=== PATIENT | male | born 1935 | race Caucasian/White ===

== ENCOUNTER 2016-11-27 11:42 | Inpatient (IN) | payer MEDICARE, BC ==
--- NOTE | ~2016-11-27 | HEMODYNAMI ---
PATIENT:COLUMBA MURRY MEDICAL RECORD: [id number] : 39 LOCATION:[facility].210 ADMISSION DATE: 11/27/16 Generatedon:11/28/201611:17 Patient name: COLUMBA MURRY Patient #: [id number] SSN: : [id number] Date of study: 11/28/2016 Page: Of Hemodynamic Procedure Report Patient Data Patient Demographics Procedure consent was obtained First Name: COLUMBA Gender: Male Last Name: LOVELY : 1935 [facility] Initial: R Age: 81 year(s) Patient #: [id number] Race: Additional ID: [id number] Contact details Address: [address] State: [place] City: [place] Zip code: [address] Past Medical History Allergies Allergen Reaction Date Comments Reported Other allergy 08/26/2014 ASA, Sulfa, Metformin Admission Admission Data Admission Date: 11/27/2016 Admission Time: 16:56 Room #: [facility] Procedure Procedure Types Cath Procedure Diagnostic Procedure [facility] w/Coronaries PCI Procedure Coronary Stent Initial Miscellaneous Procedures Moderate Sedation up to 45 minutes Procedure Description Procedure Date Procedure Date: 11/28/2016 Procedure Start Time: 10:24 Procedure End Time: 11:15 Procedure Staff Name Function Milton Guillen MD Performing Physician Bala Pablo RN Nurse Breonna Berman RT Scrub Maurizio Harrell RT Monitor Procedure Data Cath Procedure Fluoroscopy Diagnostic fluoroscopy Total fluoroscopy Time: time: 18.4 min 18.4 min Diagnostic fluoroscopy Total fluoroscopy dose: dose: 2145 mGy 2145 mGy Contrast Material Contrast Material Type Amount (ml) Isovue 300 127 Entry Location Entry Primary Successful Side Size Upsize Upsize Entry Closure Long ccessful Closure Location (Fr) 1 (Fr) 2 (Fr) Remarks Device Remarks Radial Right 6 Fr Mechanical artery Short Compression Estimated blood loss: 10 ml Diagnostic catheters Device Type Used For End Catheter Placement Diagnostic Terumo 5Fr Procedure [place] 110cm catheter Procedure Complications No complications Procedure Medications Medication Administration Route Dosage Oxygen NC 2 l/min Heparin Flush Bag added to field 2 bags (1000units/500ml NS) 0.9% NaCl I.V. 100 ml/hr Radial Cocktail added to field 1 syringe (Verapomil 2mg/Nitro 400mcg/Heparin 1500units) Fentanyl I.V. 50 mcg Versed I.V. 1 mg Radial Cocktail I.A. 1 syringe (Verapomil 2mg/Nitro 400mcg/Heparin 1500units) Fentanyl I.V. 50 mcg Versed I.V. 1 mg Heparin Bolus I.V. 4000 units Integrilin (Bolus I.V. 6.8 ml 2mg/ml) Integrilin (Bolus wasted 3.2 ml 2mg/ml) Plavix P.O. 600 mg Hemodynamics Rest Heart Rate: 94 (bpm) Pressure Samples Time Site Value (mmHg) Purpose Heart Use Rate(bpm) 10:27 LV 97/11,17 Snapshot 84 10:28 AO 88/53(68) Snapshot 83 Gradients Valve Time Site Site Mean SEP/DFP Peak To Heart Use 1 2 (mmHg) (sec/min) Peak Rate (mmHg) (bpm) Aortic 10:27 LV AO 78 Snapshots Pre Cath Intra NCS Post Cath Vital Signs Time Heart Resp SPO2 etCO2 NIBP (mmHg) Rhythm Pain Sedation Rate (ipm) (%) (mmHg) Status Level (bpm) 10:15:31 94 18 90 15 162/94(134) NSR 0 (11) 10(A) , No pain 10:20:14 91 17 91 0 145/76(112) NSR 0 (11) 9(A) , No pain 10:24:54 87 18 91 0 125/71(94) NSR 0 (11) 9(A) , No pain 10:29:33 83 17 90 0 104/57(70) NSR 0 (11) 9(A) , No pain 10:34:09 83 17 91 8.2 96/48(70) NSR 0 (11) 9(A) , No pain 10:38:44 81 18 92 15.8 88/45(68) NSR 0 (11) 9(A) , No pain 10:43:16 81 18 93 8.2 96/56(79) NSR 0 (11) 9(A) , No pain 10:47:53 80 18 94 0 95/50(67) NSR 0 (11) 9(A) , No pain 10:52:27 80 18 94 0 101/60(72) NSR 0 (11) 9(A) , No pain 10:57:02 80 17 96 11.2 111/65(85) NSR 0 (11) 9(A) , No pain 11:01:40 82 19 93 13.5 114/61(90) NSR 0 (11) 9(A) , No pain 11:06:17 83 18 94 17.2 119/72(94) NSR 0 (11) 9(A) , No pain 11:10:58 85 21 95 17.2 124/94(105) NSR 0 (11) 9(A) , No pain 11:15:36 83 18 79 17.2 120/63(94) NSR 0 (11) 9(A) , No pain Medications Time Medication Route Dose Verified Delivered Reason Note s Effectiveness by by 10:16:43 Oxygen NC 2 l/min Milton Mckenna Per physician [facility] Pablo RN, MD 10:16:52 Heparin Flush added 2 bags Milton Mckenna used for Bag to [facility] Paul Pablo RN procedure (1000units/500ml field RODRIGUEZ NS) 10:17:04 0.9% NaCl I.V. 100 Milton Mckenna Per physician ml/hr [facility] Pablo RN, MD 10:17:18 Radial Cocktail added 1 Milton Mckenna used for (Verapomil to syringe [facility] Pablo RN procedure 2mg/Nitro field RODRIGUEZ 400mcg/Heparin 1500units) 10:17:52 Fentanyl I.V. 50 mcg Milton Mckenna for sedation [facility] Pablo RN, MD 10:17:59 Versed I.V. 1 mg Milton Mckenna for sedation [facility] Pablo RN, MD 10:27:52 Radial Cocktail I.A. 1 Milton Milton for (Verapomil syringe [facility] Paul Guillen vasodilation 2mg/Christofer RODRIUGEZ MD 400mcg/Heparin 1500units) 10:28:04 Fentanyl I.V. 50 mcg Milton Mckenna for sedation [facility] Pablo RN, MD 10:28:09 Versed I.V. 1 mg Milton Mckenna for sedation [facility] Paul Pablo RN, MD 10:35:45 Heparin Bolus I.V. 4000 Milton Mckenna for units [facility] Pablo RN anticoagulation MD 10:36:05 Integrilin I.V. 6.8 ml Milton Mckenna for (Bolus 2mg/ml) [facility] Pablo RN antiplatelet MD therapy 10:36:16 Integrilin wasted 3.2 ml Milton Mckenna for (Bolus 2mg/ml) [facility] Pablo RN antiplatelet MD therapy 11:09:56 Plavix P.O. 600 mg Milton Mckenna for [facility] Pablo RN antiplatelet MD therapy Procedure Log Time Note 9:48:24 Bala Pablo RN sent for patient. Start room use. 9:48:25 Time tracking: Regular hours 9:48:29 Plan of Care:Hemodynamics will remain stable., Cardiac rhythm will remain stable., Comfort level will be maintained., Respiratory function will remain adequate., Patient/ family verbilizes understanding of procedure., Procedure tolerated without complication., Recovers from procedure without complications.. 10:04:59 Patient received from PCU to CCL 1 Alert and oriented. Tansferred to table in Supine position. 10:05:00 Warm blankets applied, and christian hugger turned on for patient comfort. 10:05:01 Correct patient and procedure confirmed by team. 10:05:02 Signed procedure consent form obtained from patient. 10:05:03 ECG and BP/O2 sat monitors applied to patient. 10:14:38 Vital chart was started 10:16:08 Baseline sample Acquired. 10:16:11 Rhythm: sinus rhythm 10:16:13 Full Disclosure recording started 10:16:16 H&P Date Dictated: 11/28/2016 Within 30 days and on chart.. 10:16:16 Pre-procedure instructions explained to patient. 10:16:18 Pre-op teaching completed and patient verbalized understanding. 10:16:19 Family unavailable. 10:16:22 Patient NPO since Midnight. 10:16:23 Is the patient allergic to Iodine/contrast media? No. 10:16:27 Is patient on blood thinner?No 10:16:29 Patient diabetic? Yes. 10:16:31 If diabetic: On Metformin? No 10:16:33 Previous problem with sedation/anesthesia? No ? 10:16:34 Snore? Yes 10:16:36 Sleep apnea? No 10:16:37 Deviated septum? No 10:16:37 Opens mouth fully? Yes 10:16:38 Sticks out tongue? Yes 10:16:40 Airway obstruction? No ? 10:16:42 Dentures? No ? 10:16:43 Oxygen 2 l/min NC was administered by Bala Pablo RN; Per physician; 10:16:45 Pre procedure: right dorsailis pedis pulse 1+ Palpable, but thready & weak; easily obliterated 10:16:47 Modified Mick's test Ulnar < 7 seconds 10:16:49 Patient pain scale 0/10 ?. 10:16:52 Heparin Flush Bag (1000units/500ml NS) 2 bags added to field was administered by Bala Pablo RN; used for procedure; 10:16:57 IV patent on arrival in left forearm with 0.9% NaCl at [facility]. 10:16:59 Lab results completed and on chart. 10:17:03 Right Radial & Right Groin area was prepped with chlora-prep and draped in sterile fashion 10:17:04 0.9% NaCl 100 ml/hr I.V. was administered by Bala Pablo RN; Per physician; 10:17:05 Alarms reviewed by R. N. 10:17:05 Sharps counted by scrub and verified by R.N. 10:17:08 Use device set Radial Dx 10:17:10 Tegaderm 4 x 4 opened to sterile field. 10:17:11 Acist Hand Control opened to sterile field. 10:17:11 Acist Manifold opened to sterile field. 10:17:13 Acist Syringe opened to sterile field. 10:17:13 Medline Cath Pack opened to sterile field. 10:17:13 Bag Decanter opened to sterile field. 10:17:14 Terumo 6Fr Slender Glidesheath opened to sterile field. 10:17:14 St [place]omon 260cm J .035 wire opened to sterile field. 10:17:15 MBrace Wrist Support opened to sterile field. 10:17:18 Radial Cocktail (Verapomil 2mg/Nitro 400mcg/Heparin 1500units) 1 syringe added to field was administered by Bala Pablo RN; used for procedure; 10:17:28 --------ALL STOP TIME OUT------ 10:17:28 Final Timeout: patient, procedure, and site verified with staff and physician. All members of the team are in agreement. 10:17:30 Right Radial & Right Groin site verified by team. 10:17:34 Physical assessment completed. ASA score P 2 - A patient with mild systemic disease as per Milton Guillen MD. 10:17:37 Sedation plan: IV Moderate Sedation Versed, Fentanyl 10:17:52 Fentanyl 50 mcg I.V. was administered by Bala Pablo RN; for sedation; 10:17:56 IV Extension Set opened to sterile field. 10:17:59 Versed 1 mg I.V. was administered by Bala Pablo RN; for sedation; 10:24:37 Procedure started. 10:24:43 Local anesthetic to right radial artery with Lidocaine 2% by Milton Guillen MD.INITIAL ACCESS ONLY 10:26:13 A 6 Fr Short sheath was inserted into the Right Radial artery 10:26:29 Zero performed for pressure channel P1 10::32 Zero performed for pressure channel P1 10::44 A Diagnostic Pipefish 5Fr [place] 110cm catheter was advanced over the wire and used for Procedure. 10:27:38 LV angiography performed. 10:27:46 LV gram done using AMARO 10:27:52 Radial Cocktail (Verapomil 2mg/Nitro 400mcg/Heparin 1500units) 1 syringe I.A. was administered by Milton Guillen MD; for vasodilation; 10:27:52 EF : 35 % 10:28:04 Fentanyl 50 mcg I.V. was administered by Bala Pablo RN; for sedation; 10:28:09 Versed 1 mg I.V. was administered by Bala Pablo RN; for sedation; 10:28:26 LCA angiography performed. 10:29:50 RCA angiography performed. 10:31:03 Catheter exchanged over wire. 10:32:42 Reaves BMW [place] 2 J-tip 300cm 0.014 guide wir opened to sterile field. 10:32:42 Medtronic Launcher 6Fr EBU 3.5 guide catheter opened to sterile field. 10:32:43 Reaves Whisper J 300cm 0.014 guide wire opened to sterile field. 10:33:04 Study PCI Site: [place] OM1 has 90% stenosis. 10:33:08 ACC Pre-intervention KAROLINA Flow is 3. 10:33:13 6 Fr EBU 3.5 guide catheter was inserted over the wire 10:33:46 Whisper wire advanced. 10:35:45 Heparin Bolus 4000 units I.V. was administered by Bala Pablo RN; for anticoagulation; 10:35:55 Wire advanced across lesion. 10:36:05 Integrilin (Bolus 2mg/ml) 6.8 ml I.V. was administered by Bala Pablo RN; for antiplatelet therapy; 10:36:16 Integrilin (Bolus 2mg/ml) 3.2 ml wasted was administered by Bala Pablo RN; for antiplatelet therapy; 10:36:54 Inflation number: 1 A [place] Sci Bond 3.0 X 15 balloon was prepped and advanced across the 1st Ob Manasa, then inflated to 8 MELVIN for 0:30 (min:sec). 10:37:55 Multiple inflations made throughout the distal, mid, and proximal portions of OM1 at 8 Atms. 10:41:18 Balloon removed over the wire. 10:44:32 Wire exchanged, damaged. 10:44:36 Reaves Whisper J 300cm 0.014 guide wire opened to sterile field. 10:45:04 New Whisper wire advanced down the OM1. 10:48:44 The Medtronic Integrity 3.0 X 18 stent was advanced then removed because of failure to cross lesion 10:50:12 Inflation number: 2 The [place] Sci Bond 3.0 X 15 balloon was reinflated across the 1st Ob Manasa, to 10 MELVIN for 0:30 (min:sec). 10:50:17 Balloon removed over the wire. 10:54:17 Reaves Whisper J 300cm 0.014 guide wire opened to sterile field. 10:54:42 New Whisper wire advanced as a dario wire. 10:56:29 Stent advanced across lesion, dario wire removed. 10:56:37 Inflation Number: 3 A Medtronic Integrity 3.0 X 18 stent was prepped and advanced across the 1st Ob Manasa. The stent was deployed at 14 EMLVIN for 0:45 (min:sec). 10:59:07 Stent catheter was removed intact over wire. 10:59:07 Wire removed. 11:01:17 Whisper wire advanced. 11:02:43 Balloon re-inserted over wire. 11:02:55 Inflation number: 4 A [place] Crystals Bond 3.0 X 15 balloon was prepped and advanced across the 1st Ob Manasa, then inflated to 8 MELVIN for 0:30 (min:sec). 11:03:03 Multiple inflations made throughout the distal portion of OM1 at 8 Atms. 11:07:22 Balloon re-inserted over wire. 11:07:40 Inflation Number: 1 A The Fred Rogerstronic Integrity 2.5 X 12 stent was prepped and advanced across the 1st Ob Marg1. The stent was deployed at 14 MELVIN for 0:45 (min:sec). 11:08:03 Stent catheter was removed intact over wire. 11:08:04 Wire removed. 11:08:04 Guide catheter removed. 11:08:06 ACC Post-intervention KAROLINA Flow is 3. 11:08:49 Terumo TR Band Standard opened to sterile field. 11:08:59 Sheath removed intact; hemostasis achieved with Mechanical Compression to the Right Radial artery. 11:09:02 Procedure ended.(Physican Out) 11:09:21 Fluoroscopy time 18.40 minutes. 11:09:24 Fluoroscopy dose: 2145 mGy 11:09:24 Flurop Dose total: 2145 11:09:30 Contrast amount:Isovue 300 127ml. 11:09:31 Sharps counted by scrub and verified by R.N. 11:09:34 TR band inflated with 10cc of air. 11:09:37 Insertion/operative site no bleeding no hematoma. 11:09:39 Post Procedure Pulses reassessed and unchanged 11:09:41 Post-procedure physical assessment completed. ASA score P 2 - A patient with mild systemic disease as per Milton Guillen MD. 11:09:44 Post procedure rhythm: unchanged. 11:09:46 Estimated blood loss: 10 ml 11:09:48 Post procedure instruction explained to patient.Patient verbalizes understanding. 11:09:48 Patient needs reinforcement of post procedure teaching. 11:09:56 Plavix 600 mg P.O. was administered by Bala Pablo RN; for antiplatelet therapy; 11:09:59 Procedure type changed to Cath procedure, Diagnostic procedure, LHC, LHC w/Coronaries, PCI procedure, Coronary Stent Initial, Miscellaneous Procedures, Moderate Sedation up to 45 minutes 11:10:03 Procedure Complication : No complications 11:10:36 Procedure and supply charges have been captured, reviewed, submitted and are correct. 11:15:16 Vital chart was stopped 11:15:17 See physician's report for complete and final results. 11:15:41 Report given to PCU. 11:15:44 Patient transfered to PCU with Bed. 11:15:46 Procedure ended. 11:15:46 Full Disclosure recording stopped 11:15:50 End room use (Document Last) Intervention Summary Intervention Notes Time ActionType Lesion and Equipment Action# Pressure Duration Attributes Used 10:36:54 Inflate 1st Ob Manasa [place] 1 8 00:30 balloon Sci Bond 3.0 X 15 balloon 10:48:44 Discard Medtronic Stent Integrity 3.0 X 18 stent 10:50:12 Reinflate 1st Ob Manasa [place] 2 10 00:30 balloon Sci Bond 3.0 X 15 balloon 10:56:37 Place stent 1st Ob Manasa Medtronic 3 14 00:45 Integrity 3.0 X 18 stent 11:02:55 Inflate 1st Ob Manasa [place] 4 8 00:30 balloon Sci Bond 3.0 X 15 balloon 11:07:40 Place stent 1st Ob Medtronic 1 14 00:45 Marg1 Integrity 2.5 X 12 stent Device Usage Item Name Manufacture Quantity Catalog Number Hospital Part Current Mini [facility] Lot# / Charge Number Stock Stock Serial# Code Tegaderm 4 1 [id number] 609208 878972 5 x 4 Acist Hand Acist 1 59340 904096 060053 214196 5 Control Medical Systems Inc Acist Acist 1 46355 299481 713109 609674 5 Manifold Medical Systems Inc Acist Acist 1 34152 886775 815794 225349 20 Syringe Medical Systems Inc Medline Cardinal 1 [id number] 928566 17516 303674 5 Cath Pack Health Bag Microtek 1 2001S 200470 98316 647570 5 DecQSecure Medical Inc. Terumo 6Fr Terumo 1 [id number] 781510 076518 053368 [address] St [place] 1 305793 537071 386182 071533 30 260cm J .035 wire MBrace Advanced 1 140-0250-00 057396 68463 074366 5 Wrist Vascular Support Dynamics IV Hospira 1 145866 11987 881117 5 Extension Set Diagnostic Terumo 1 74-5893 083139 367030 689631 5 Terumo 5Fr [place] 110cm catheter Reaves BMW Reaves 1 [id number] 028449 200116 221321 5 [place] 2 Vascular J-tip 300cm 0.014 guide wir Medtronic Medtronic 1 [id number] 514308 37040 405020 3 Launcher 6Fr EBU 3.5 guide catheter Reaves Reaves 3 [id number] 282248 512553 727551 5 Whisper J Vascular 300cm 0.014 guide wire [place] Sci [place] 2 [id number] 518830 332218 147525 1 [id number] Assmbly [id number] 3.0 X 15 balloon Medtronic Medtronic 1 [id number] 619657 436313 2 [id number] Integrity 3.0 X 18 stent Medtronic Medtronic 1 [id number] 035615 692717 3 [id number] Integrity 2.5 X 12 stent Terumo TR Terumo 1 [id number] 868001 182755 180364 40 Band Standard Signature Audit [place]ola Stage Time Signature Unsigned Intra-Procedure 11/28/2016 Maurizio Harrell 11:17:19 AM RT(R) Signatures Monitor : Maurizio Harrell RT Signature : Date : Time : [id number] [place] [address]
[~2016-11-27 11:42] MED LIST: ALEVE220 MG PO; AXIRON30 MG/1.5; CHLORTHALIDONE25 MG PO; CORGARD40 MG PO; GEMFIBROZIL600 MG PO; HUMALOG 30100 UNITS/ INJ; LANTUS INSULIN10 ML INJ; MACROBID100 MG PO; MULTIPLE VITAMI1 TA1 PO; PLAVIX75 MG PO; PRAVACHOL40 MG PO; ZANTAC300 MG PO; ZYLOPRIM300 MG PO
[2016-11-27 12:11] LABS: BASOPHILS 0.1 % (0-2); EOSINOPHILS 0.9 % (0-7); HEMATOCRIT 22.8 % (42.0-54.0); IMMATURE GRANULOCYTES 0.3 % (0-5); LYMPHOCYTES 15.3 % (15-50); MCH 27.5 pg (26.0-34.0); MEAN PLATELET VOLUME 11.4 fL (7.4-10.4); MONOCYTES 5.7 % (2-11); NEUTROPHILS 77.7 % (40-80); RBC 2.65 10x6/uL (4.20-6.10); RDW 16.9 % (11.5-14.5); WBC 9.2 10x3/uL (4.8-10.8)
[2016-11-27 12:19] LABS: HEMOGLOBIN 7.3 g/dL (13.5-17.5); PLATELET COUNT 212 10x3/uL (130-400)
[2016-11-27 12:25] LABS: ALBUMIN 3.5 g/dL (3.4-5.0); ANION GAP 19.1 mmol/L (8-16); BILIRUBIN - TOTAL 0.36 mg/dL (0.2-1.3); CALCIUM 8.8 mg/dL (8.5-10.1); PROTEIN - SERUM 7.1 g/dL (6.4-8.2)
[2016-11-27 12:41] LABS: POTASSIUM - SERUM 6.1 mmol/L (3.5-5.1)
[2016-11-27 13:22] LABS: CKMB 1.4 U/L (0.0-3.6); CREATINE KINASE 121 UL (21-232); TROPONIN-I 0.038 ng/mL (0.000-0.060)
[2016-11-27 15:19] LABS: APPEARANCE CLEAR (CLEAR); BILIRUBIN NEGATIVE (NEGATIVE); COLOR YELLOW (YELLOW); GLUCOSE NEGATIVE (NEGATIVE); KETONE NEGATIVE (NEGATIVE); NITRITE NEGATIVE (NEGATIVE); PH 5.5 (5.0-6.0); PROTEIN TRACE mg/dL (NEGATIVE); UROBILINOGEN NORMAL (NORMAL)
[2016-11-27 15:33] LABS: BACTERIA FEW /hpf (NONE SEEN); EPITHELIAL CELLS 0-5 /hpf (0-5); RED CELLS - URINE 0-5 /hpf (0-5)
[2016-11-27 17:36] VITALS: BP 164/66
[2016-11-27 17:40] LABS: CKMB 2.9 U/L (0.0-3.6); CREATINE KINASE 222 UL (21-232)
[2016-11-27 17:42] LABS: TROPONIN-I 0.087 ng/mL (0.000-0.060)
[2016-11-27] MEDS ORDERED: NORVASC2.5 MG PO (17:44)
[2016-11-27] MEDS ORDERED: BACTRIM DS TABL1 TAB PO (17:45)
[2016-11-27 17:56] VITALS: BMI 23.7
--- NOTE | 2016-11-27 18:28 | NUR ---
DR LUNA NOTIFIED ABOUT ELEVATED TROPONIN. SAID TO CONSULT CARDIOLOGY, DONE.
--- NOTE | 2016-11-27 19:35 | NUR ---
RECEIVED REPORT. WILL ASSUME CARE OF PT, PT UP TO BATHROOM WITH JUNCTION MAKER, DENIES ANY OTHER NEEDS, WILL CONTINUE PLAN OF CARE
[2016-11-27 21:51] VITALS: BP 130/69
[2016-11-28] VITALS (15 sets, daily range): BP systolic 116–149; BP diastolic 39–95
--- NOTE | 2016-11-28 00:10 | NUR ---
SPOKE WITH DR. LUNA FOR PAIN MEDS, NORCO 5 WAS ORDER Q8 PRN
--- NOTE | 2016-11-28 00:23 | NUR ---
NORCO GIVEN ORDER, EKG COMPLETE
[2016-11-28 01:15] LABS: CKMB 14.8 U/L (0.0-3.6); CREATINE KINASE 259 UL (21-232)
[2016-11-28 01:16] LABS: TROPONIN-I 2.701 ng/mL (0.000-0.060)
--- NOTE | 2016-11-28 01:25 | NUR ---
LYING IN BED, WILL CONTINUE WITH PLAN OF CARE.
--- NOTE | 2016-11-28 01:53 | NUR ---
ASSESSMENT COMPLETE, SEE FLOWSHEET, PT SLEEPING, BED IS LOW, SRX2, CALL LIGHT IN REACH, WILL CONTINUE PLAN OF CARE
[2016-11-28 05:40] LABS: BASOPHILS 0.1 % (0-2); EOSINOPHILS 1.2 % (0-7); HEMATOCRIT 24.6 % (42.0-54.0); IMMATURE GRANULOCYTES 0.4 % (0-5); LYMPHOCYTES 15.6 % (15-50); MCHC 32.5 g/dL (31.0-37.0); MEAN PLATELET VOLUME 10.8 fL (7.4-10.4); MONOCYTES 7.6 % (2-11); NEUTROPHILS 75.1 % (40-80); RBC 2.86 10x6/uL (4.20-6.10); RDW 16.4 % (11.5-14.5)
[2016-11-28 05:44] LABS: PLATELET COUNT 160 10x3/uL (130-400)
[2016-11-28 06:21] LABS: CALC OSMOLALITY 310 mosm/kg (275-300); CALCIUM 8.7 mg/dL (8.5-10.1); CARBON DIOXIDE 16.8 mmol/L (21.0-32.0); CHLORIDE - SERUM 110 mmol/L (98-107); CKMB 25.9 U/L (0.0-3.6); CREATINE KINASE 267 UL (21-232); CREATININE - SERUM 3.8 mg/dL (0.6-1.3); GLUCOSE 131 mg/dL (74-106); MAGNESIUM - SERUM 1.6 mg/dL (1.8-2.4); PHOSPHOROUS 3.5 mg/dL (2.5-4.9); SODIUM 141 mmol/L (136-145); UREA NITROGEN 91 mg/dL (7-18); eGFR NON AFRICAN AMERICAN 16 mL/min (90-120)
[2016-11-28 06:22] LABS: TROPONIN-I 4.599 ng/mL (0.000-0.060)
--- NOTE | 2016-11-28 06:36 | NUR ---
NOTIFIED [facility] CONTI IS 4.599, PLACED ON WOOD BORER, CONSENT SIGNED
--- NOTE | 2016-11-28 07:36 | NUR ---
AM ROUNDS - PT IN BED AND APPEARS TO BE SLEEPING WITH EQUAL AND NON LABORED BREATHING. YELLOW BAND ON. IV TO LEFT AC, NA BICARB AT 150CC/HR. BED AT LOWEST POSITION. CALL MILLIGAN IN USE/REACH. SIDE RAILS UP X2. WILL CONTINUE TO MONITOR.
--- NOTE | 2016-11-28 09:52 | NUR ---
PT HAS BEEN PREOPED FOR INSTRUMENT LENS GRINDER. WILL CONTINUE TO MONITOR
--- NOTE | 2016-11-28 09:58 | NUR ---
PT LEFT FLOOR VIA BED TO COAT MAKER
--- NOTE | 2016-11-28 11:41 | NUR ---
PT RETURNED FROM ASSEMBLER SANDAL PARTS. WILL CONTINUE TO MONITOR
--- NOTE | 2016-11-28 13:03 | NUR ---
1250 - PT HAD A FULL HEART BLOCK FOR 8 SECONDS PER MONITOR TECK, [place] V/S WNL 1255 - DR. PABLO NOTIFIED. NEW ORDES GIVEN 1974 - DR. LUNA PAGED WILL CONTINUE TO MONITOR
--- NOTE | 2016-11-28 13:29 | NUR ---
ARRIVED TO UNIT FROM [facility] 2. RECIEVED REPORT FROM WADE. PT LETHARGIC HOWEVER ABLE TO ANSWER ORIENTATION QUESTIONS APPROPIATLY. WILL CONTINUE PLAN OF CARE.
--- NOTE | 2016-11-28 14:13 | NUR ---
IV PLACED TO RT AC, 20G. FLUSHES WELL. WILL START 2U PRBC ADMIN SHORTLY.
--- NOTE | 2016-11-28 15:55 | NUR ---
COMPLAINT OF LEFT SIDED CHEST PAIN WHICH FEELS LIKE A KNIFE STAB, BURNING DISCOMFORT. PT RATES PAIN LEVEL OF [address] JHA PAGED TO NOTIFY FOR FURTHER ORDERS.
--- NOTE | 2016-11-28 16:16 | NUR ---
RECIEVED CALLBACK FROM DR JHA, ORDERS RECIEVED. WILL PLACE.
--- NOTE | 2016-11-28 17:57 | NUR ---
LYING IN BED RESTING AT THIS TIME. NO ACUTE DISTRESS NOTED. FIRST UNIT OF PRBC ADMIN HAS COMPLETED, PT HAS BEGUN 2ND UNIT OF PRBC PER PHYSICIAN ORDERS. DENIES ANY NEEDS. REPIRATIONS STEADY AND UNLABORED. WILL CONTINUE PLAN OF CARE.
--- NOTE | 2016-11-28 18:15 | NUR ---
NOTED ORDER FOR [address] PR[address]. PER DR JHA NOTE, NOTED STATED FOR PT TO RECIEVE 3 TOTAL UNITS OF PRBC. WHEN RECIEVING REPORT ON PT FROM WADE BEFORE RECIEVING PT FROM [facility]. SHE STATED SHE HAD RECIEVED CLARIFICATION FROM DR JHA IN REFERENCE TO ORDER AND WADE STATES DR JHA TOLD HER HE WANTED PT TO RECIEVE 3 TOTAL UNITS OF PRBC SINCE ADMISSION AND SINCE PT HAD RECIEVED 1 U PRBC YESTERDAY HE ONLY WANTS 2 MORE UNITS OF PRBC TO BE GIVEN TO PT. PT IS CURRENTLY RECIEVING SECOND UNIT OF PRBC PER ORDERS. WILL RECHECK H&H AT 2200. PT DENIES ANY NEEDS. RESTING IN BED, RESPIRATIONS STEADY AND UNLABORED. AWAKENS EASILY WHEN SPOKEN TO. WILL CONTINUE PLAN OF CARE.
--- NOTE | 2016-11-28 19:15 | NUR ---
SHIFT ASSESSMENT COMPLETE. PT IS A&O X4 WITH NO COMPLAINTS OF PAIN. V/S: TEMP 98.5 AXILLARY, HR 76 BPM, BP 121/42, RR 18 REGULAR/UNLABORED, O2 SAT 97% NC @ 2.5 L/MIN. S1S2 AUDIBLE, LUNG SOUNDS DIMINISHED THROUGHOUT ALL LOBES. ABD IS FLAT, NON TENDER TO TOUCH, BS ACTIVE X4. R RADIAL BANDAGE, CDI. PERIPHERAL PULSES PALP. PIV TO R AC INFUSING BICARB @ 150 ML/HR. PIV TO L AC INFUSING PRBC WITH NO S/S OF TRANSFUSION REACTION. PT DENIES ANY REQUESTS. BED IN LOWEST POSITION, BED ALARM ON, CALL LIGHT IN REACH. WILL CONT TO MONITOR.
--- NOTE | 2016-11-28 21:00 | NUR ---
PT DENIES ANY PAIN AT THIS TIME. HR 75 NORMAL SINUS, FIRST DEGREE BLOCK. SODIUM BICARB DRIP IS OUT. NONE LEFT ON UNIT. 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 SWAB CAPPED/LABELED LINES. CALL LIGHT IN REACH. BED IN LOWEST POSITION. WILL CONT TO MONITOR.
[2016-11-28 22:28] LABS: HEMOGLOBIN 9.6 g/dL (13.5-17.5)
--- NOTE | 2016-11-28 23:20 | NUR ---
REASSESSMENT COMPLETE. PT DENIES PAIN AT THIS TIME. V/S: HR 75 NORMAL SINUS WITH FIRST DEGREE BLOCK, BP 118/39, TEMP 98.4 AXILLARY, RR 18, O2 SAT 98%, NC 2.5 L/MIN. BICARB INFUSING @ 150 ML/HR THROUGH R PIV. BED IN LOWEST POSITION. CALL LIGHT IN REACH. WILL CONT TO MONITOR.
[2016-11-29] VITALS (22 sets, daily range): BP systolic 109–138; BP diastolic 33–98; BMI 25.8
--- NOTE | 2016-11-29 00:15 | NUR ---
FSBS 163. ADMINISTERED 2 UN HUMALOG. WILL CONT WITH POC.
--- NOTE | 2016-11-29 01:30 | NUR ---
PT RESTING PEACEFULLY WITH NO SIGNS OF ACUTE DISTRESS NOTED. VSS. WILL CONT TO MONITOR.
--- NOTE | 2016-11-29 02:30 | NUR ---
PT UP TO BSC AND STARTED TO COMPLAIN OF CHEST PAIN AND L SHOULDER PAIN. HE STATES THAT IT FEELS LIKE IT DID EARLIER IN THE DAY. HE ALSO STATED THAT HE FELT NAUSEATED AND THAT HE PASSES OUT WHENEVER HE GETS SICK TO HIS STOMACH. ADMINISTERED PRN ZOFRAN AND MORPHINE. PT IS BACK IN BED RESTING AND HE STATES THAT THE PAIN MED IS REALLY HELPING HIM. NO FURTHER REQUESTS AT THIS TIME. REFILLED REFRESHMENTS AND CLEANED UP PT'S ROOM. CALL LIGHT IN REACH. BED IN LOWEST POSITION. WILL CONT WITH POC.
--- NOTE | 2016-11-29 03:30 | NUR ---
REASSESSMENT COMPLETE. PT STATES THAT HE IS NOT EXPERIENCING ANY MORE PAIN AT THIS TIME AND STATES THAT HE FEELS TIRED. VSS. HR 77 BPM, NORMAL SINUS RHYTHM. NO REQUESTS AT THIS TIME. WILL CONT WITH POC. CALL LIGHT IN REACH.
[2016-11-29 04:26] LABS: BASOPHILS 0.2 % (0-2); EOSINOPHILS 0.3 % (0-7); HEMATOCRIT 29.5 % (42.0-54.0); HEMOGLOBIN 9.6 g/dL (13.5-17.5); IMMATURE GRANULOCYTES 0.4 % (0-5); LYMPHOCYTES 13.3 % (15-50); MCH 28.2 pg (26.0-34.0); MCHC 32.5 g/dL (31.0-37.0); MCV 86.8 fL (80.0-100.0); MEAN PLATELET VOLUME 11.5 fL (7.4-10.4); MONOCYTES 9.7 % (2-11); NEUTROPHILS 76.1 % (40-80); PLATELET COUNT 174 10x3/uL (130-400); RDW 16.3 % (11.5-14.5); WBC 10.5 10x3/uL (4.8-10.8)
[2016-11-29 04:35] LABS: ANION GAP 19.6 mmol/L (8-16); BILIRUBIN - TOTAL 0.44 mg/dL (0.2-1.3); CALCIUM 8.7 mg/dL (8.5-10.1); CARBON DIOXIDE 16.8 mmol/L (21.0-32.0); CREATININE - SERUM 4.2 mg/dL (0.6-1.3); MAGNESIUM - SERUM 1.7 mg/dL (1.8-2.4); POTASSIUM - SERUM 5.4 mmol/L (3.5-5.1)
[2016-11-29 04:36] LABS: PHOSPHOROUS 6.6 mg/dL (2.5-4.9)
--- NOTE | 2016-11-29 05:10 | NUR ---
PT IS RESTING IN BED PEACEFULLY WITH NO SIGNS OF ACUTE DISTRESS NOTED. BED IN LOWEST POSITION. CALL LIGHT IN REACH. WILL CONT WITH POC.
--- NOTE | 2016-11-29 09:48 | NUR ---
Pt rated pain 6/10 on chest. Morphine 5mg IV given. Will continue to monitor.
[2016-11-29 10:53] LABS: COMPLEMENT C4 10.8 mg/dL (17.4-52.2)
[2016-11-29 10:57] LABS: CHOL - HDL RATIO 4.2 ratio (2.3-4.9); CHOLESTEROL, TOTAL 106 mg/dL (0-200); CKMB 135.9 U/L (0.0-3.6); HDL CHOLESTEROL 25 mg/dL (32-96); LDL CHOLESTEROL 57 mg/dL (0-100); LDL-HDL RATIO 2.3 ratio (1.5-3.5); THYROID STIMULATING HORMONE 6.21 uIU/mL (0.36-3.74); TRIGLYCERIDE 121 mg/dL (30-200)
[2016-11-29 11:02] LABS: CREATINE KINASE 1098 UL (21-232); TROPONIN-I 45.191 ng/mL (0.000-0.060)
--- NOTE | 2016-11-29 11:08 | OP ---
PATIENT NAME: COLUMBA MURRY MEDICAL RECORD: [id number] :37 LOCATION:.[facility] D.2309 ADMISSION DATE:11/27/16 SURGEON: JUANI JHA MD DATE OF OPERATION: 11/28/2016 PROCEDURE: Left heart catheterization, selective coronary angiography, right femoral artery approach. CATHETERS: A 5-Luxembourgish sheath, 5/4 left and right Rosenda, 5/4 pig. The procedure was well tolerated and we proceeded immediately to PTCA stenting of OM1 after procedure was finished. FINDINGS: Left angiography in 30-degree AMARO view shows mid anterior, anterior apical, true apical, inferior apical hypokinesis. Overall, function is reduced to probably 30%. CORONARY ANATOMY: LEFT MAIN: Left main is free of disease. LAD: Distally has a typical diffuse diabetic vessels, not amenable to revascularization. CIRCUMFLEX: Circumflex has 1 large OM correlating with ST changes was noted to have some ST elevation upon arrival to the cath lab radiological technologist. RIGHT CORONARY ARTERY: Again, diffuse distal vessel disease, not amenable to intervention. IMPRESSION: ECG change correlate nicely with OM vessel. PLAN: Intervention momentarily. DESCRIPTION OF PROCEDURE: An EBU guiding catheter was used. Initial predeployment balloon was a 3.0 x 15 mm [place] balloon that was placed up and down the vessel. The initial stent deployed was a 3.0 x 15 mm Integrity stent. This was somewhat of a calcific vessel and we used a dario wire to place the vessel distally. This was noted to have a distal dissection as well. This was addressed with 2.5 x 12 mm Integrity stent. Final injection shows excellent resolution of the entire vasculature, no significant residual. KAROLINA flow was 3 at the end of procedure. Integrilin and heparin was used during the case. The patient again anemic, renal insufficiency, still quite ill, give total of 3 units packed red blood cells, continue bicarbonate. TRANSINT:[id number] Voice Confirmation ID: [id number] DOCUMENT ID: [id number] JUANI JHA MD at 1108 CC: [id number] DICTATION DATE: 11/28/16 1123 HELPDESK SPECIALIST: 11/28/16 1414 ADM IN [place] [id number] [place] [address]
--- NOTE | 2016-11-29 11:08 | CN ---
PATIENT NAME:COLUMBA MURRY MEDICAL RECORD: [id number] : 37 LOCATION:[facility].2309 ADMIT DATE: 11/27/16 ACCOUNT: [id number] CONSULTING PHYSICIAN: JUANI JHA MD REFERRING PHYSICIAN: AIME LUNA DO DATE OF CONSULTATION: 11/28/2016 HISTORY OF PRESENT ILLNESS: A 81-year-old gentleman with a history of coronary artery disease. He has a history of hypertension, chronic renal insufficiency, intervention to the LAD and diagonal in most recent intervention. Admitted with syncope, chest tightness and pressure, had elevation of his troponin up to 4, mitigating factor in his creatinine up to 3.8, also anemic, although given blood transfusions, continue to have pain. No obvious source of bleeding. He brought to cath lab technologist on an urgent basis. PAST MEDICAL HISTORY: Include: 1. History of hypertension. 2. Chronic renal insufficiency. 3. Coronary artery disease as describe above. 4. Diabetes mellitus. 5. Hypogonadism. ALLERGIES: SULFA, ASPIRIN, METFORMIN. MEDICATIONS: Typically include Bactrim half tablet p.o. b.i.d., amlodipine 2.5 b.i.d., gemfibrozil 600 b.i.d., nadolol 40 b.i.d., pravastatin 40 q.h.s., Naprosyn 225 as needed, Zantac 300 b.i.d., insulin per scale. SOCIAL HISTORY: back in May, was not been walking, taking care of herself with much since then, previously tried to walk on a regular basis. He is able to take care of his ADLs. REVIEW OF SYSTEMS: The patient reports easy bruising but reports no swollen glands. The patient reports no fever, no night sweats, no significant weight gain, no significant weight loss. No significant exercise tolerance. The patient reports no dry eyes, no irritation, no vision change. Patient reports no difficulty hearing and no ear pain. Patient reports no frequent nose bleeds or nose and sinus problems. Patient reports on arm pain on exertion. No shortness of breath while lying down. No history of heart murmur. Patient reports no cough, no wheezing or coughing up blood. Patient reports no abdominal pain, no vomiting. Normal appetite. No diarrhea and not vomiting blood. No nausea and no constipation. Patient reports no incontinence. No difficulty urinating. No hematuria. No increased frequency. Patient reports no muscle aches. No weakness, no arthralgias, no back pain. No swelling of the extremities. Patient reports no abnormal mole, no jaundice, no rashes. Reports no loss of consciousness. No weakness and no numbness. No seizures, dizziness, or headaches. The patient reports no depression, no sleep disturbance, feeling safe in a relationship and no alcohol abuse. Patient reports on fatigue. Reports no runny nose or sinus pressure. No itching, no hives, and no frequent sneezing. PHYSICAL EXAMINATION: GENERAL: Somewhat pale gentleman in no acute distress, appears stated age. VITAL SIGNS: Pulse 88, blood pressure 136/69. HEENT: Normocephalic, atraumatic. There is sclerae pallor. CONSULT REPORT [id number] COLUMBA MURRY NECK: No bruits are noted. HEART: Regular. There is II/ systolic ejection murmur. LUNGS: Fair air excursion. ABDOMEN: Soft, nontender. EXTREMITIES: Pulses are palpable, 2+ with no edema. NEUROLOGIC: Grossly intact. DIAGNOSTIC DATA: ECG shows ST-T changes laterally. IMPRESSION: Non-ST elevation myocardial infarction, 4+ equal to renal insufficiency, anemia, cath lab technologist on an urgent basis for vascularization be undertaken, will attempt to use not bare metal stents secondary to multiple medical issues. TRANSINT:[id number] Voice Confirmation ID: [id number] DOCUMENT ID: [id number] JUANI JHA MD at 1108 CC: [id number] DICTATION DATE: 11/28/16 1012 SMALL ARMS REPAIRER: 11/28/16 1347 ADM IN [place] [id number] [place] [id number]
--- NOTE | 2016-11-29 11:36 | NUR ---
* Is the patient Alert and Oriented? Yes 0 * How many steps to enter\exit or inside your home? 0 0 * PCP Dr. Crawley 0 * Pharmacy [facility] [address] 0 * Preadmission Environment Home Alone 0 * ADLs Independent 0 * Equipment Rolling Walker 0 * List name and contact numbers for known caregivers / representatives who currently or will assist patient after discharge: Hussein Daughter - Viv Odom [phone] * Additional services required to return to the preadmission environment? Yes 0 * Can the patient safely return to the preadmission environment? Yes 0 * Has this patient been hospitalized within the prior 30 days at any hospital? No Patient Name: COLUMBA MURRY Admission Status: ER Accout number: [id number] Admission Date: 11-27-2016 : 1935 Admission Diagnosis: Attending: James Crawley Current LOS: 2 Planned Disposition: Home Primary Insurance: MEDICARE A & B Discharge Planning Comments: CM met with patient to assess dc plans/needs. Patient states he lives alone & is independent with all ADL's & AIDL's. He states he has a walker at home but does not use it. He has had home health services in the past but unable to recall the agency. At dc, he plans to return home. He is agreeable to home health if necessary. CM will follow & assist as needed. Utility System Operator: Esme Carroll
--- NOTE | 2016-11-29 12:58 | NUR ---
BLOOD SUGAR 151. 2 UNITS OF HUMALOG GIVEN PER SLIDING SCALE. PT RATES PAIN 3/10 ON CHEST. LUNCH TRAY SET UP. NO OTHER NEEDS AT THIS TIME.
[2016-11-29 14:49] LABS: CKMB 128.4 U/L (0.0-3.6)
[2016-11-29 14:55] LABS: CREATINE KINASE 868 UL (21-232)
[2016-11-29 14:56] LABS: TROPONIN-I 46.976 ng/mL (0.000-0.060)
--- NOTE | 2016-11-29 16:44 | NUR ---
PT RESTING COMFORTABLY AT THIS TIME. REPORTS PAIN 3/10 ON CHEST. NO PAIN MED GIVEN AT THIS TIME. BICARB DRIP DISCONTINUED PER ORDERS. D5W INITIATED AT 125ML/HR. NO OTHER NEEDS AT THIS TIME.
--- NOTE | 2016-11-29 17:51 | NUR ---
BS 174. 2 UNITS OF HUMALOG GIVEN ON LEFT ARM PER SLIDING SCALE. PT HAD EPISODE OF NAUSEA AND VOMITING. CONTENTS UNDIGESTED FOOD FROM LUNCH. GAVE 4MG ZOFRAN TO HELP WITH NAUSEA AND VOMITING. RATES PAIN AT 2/10 ON CHEST. WILL CONTINUE TO MONITOR.
--- NOTE | 2016-11-29 19:54 | NUR ---
REC'D TO ROOM CV 6 VIA BED. ICU MONITORS ESTAB. NURSING STAFF REPORT N/V IN ROUTE. DENIES NAUSEA AT THIS TIME. VSS. SEE PLASMA CENTER NURSE. IVF INFUSING TO L AC, DSG C/D/I. R PIV SL'D. URINAL AT BS. ALARMS ON AND C/L IN REACH.
[2016-11-29 19:56] LABS: CKMB 93.8 U/L (0.0-3.6); CREATINE KINASE 667 UL (21-232)
[2016-11-29 19:59] LABS: TROPONIN-I 44.468 ng/mL (0.000-0.060)
--- NOTE | 2016-11-29 20:15 | NUR ---
FAMILY AT BS, UPDATE GIVEN AND QUESTIONS ANSWERED.
--- NOTE | 2016-11-29 20:45 | NUR ---
STEP DAUGHTER VERBALIZED CONCERN WITH DISCHARGE PLANNING, AFRAID HE WILL NOT BE ABLE TO GO HOME BY HIMSELF IMMEDIATELY, D/T HE LIVES BY HIMSELF. WILL PUT IN NOTE FOR CM.
--- NOTE | 2016-11-29 22:23 | NUR ---
PT RESTING QUIETLY, NO SIGN OF DISTRESS. VSS.
--- NOTE | 2016-11-29 23:07 | NUR ---
REASSESSMENT PER FLOWSHEET, NO ACUTE CHANGES. PT REPOSITIONED UP IN BED TO L SIDE. VSS. C/L IN REACH.
[2016-11-30] VITALS (26 sets, daily range): BP systolic 85–135; BP diastolic 47–78
--- NOTE | 2016-11-30 00:33 | NUR ---
PT VOIDED 150ML CLEAR, YELLOW URINE. SAMPLE COLLECTED AND SENT TO LAB.
[2016-11-30 00:48] LABS: APPEARANCE CLEAR (CLEAR); BILIRUBIN NEGATIVE (NEGATIVE); COLOR YELLOW (YELLOW); GLUCOSE NEGATIVE (NEGATIVE); KETONE NEGATIVE (NEGATIVE); NITRITE NEGATIVE (NEGATIVE); PROTEIN TRACE mg/dL (NEGATIVE); SPECIFIC GRAVITY 1.015 (1.005-1.020); UROBILINOGEN NORMAL (NORMAL)
[2016-11-30 00:49] LABS: BACTERIA MODERATE /hpf (NONE SEEN); EPITHELIAL CELLS 0-5 /hpf (0-5); RED CELLS - URINE NONE SEEN /hpf (0-5)
[2016-11-30 00:50] LABS: CREATININE - URINE 76.2 mg/dL (30-125); PRO/CRE RATIO URINE 0.4 mg/g; PROTEIN - URINE 27.6 mg/dL (0.0-11.9)
--- NOTE | 2016-11-30 00:57 | NUR ---
PRN MORPHINE GIVEN FOR BACK PAIN. LED TO NAUSEA - ADMIN PRN ZOFRAN IV. SMALL AMT EMESIS. REPORTS "BETTER" AT THIS TIME. NO CHANGE IN HEART RATE OR ECG. WILL CONT CLOSE MONITORING.
--- NOTE | 2016-11-30 02:59 | NUR ---
REASSESSMENT PER FLOWSHEET, NO ACUTE CHANGES. AWAKENS EASILY, DENIES PAIN OR SOB. VSS. REPOSITIONED WITH PILLOWS FOR COMFORT. ALARMS ON AND C/L IN REACH.
[2016-11-30 06:01] LABS: BASOPHILS 0.1 % (0-2); EOSINOPHILS 0.2 % (0-7); HEMATOCRIT 29.8 % (42.0-54.0); HEMOGLOBIN 9.8 g/dL (13.5-17.5); IMMATURE GRANULOCYTES 0.5 % (0-5); LYMPHOCYTES 10.6 % (15-50); MCH 28.7 pg (26.0-34.0); MCHC 32.9 g/dL (31.0-37.0); MCV 87.4 fL (80.0-100.0); MONOCYTES 8.8 % (2-11); NEUTROPHILS 79.8 % (40-80); PLATELET COUNT 164 10x3/uL (130-400); RBC 3.41 10x6/uL (4.20-6.10); RDW 16.5 % (11.5-14.5); WBC 10.4 10x3/uL (4.8-10.8)
[2016-11-30 06:25] LABS: ALBUMIN 3.1 g/dL (3.4-5.0); ANION GAP 21.6 mmol/L (8-16); BILIRUBIN - TOTAL 0.6 mg/dL (0.2-1.3); CALCIUM 8.3 mg/dL (8.5-10.1); CARBON DIOXIDE 14.9 mmol/L (21.0-32.0); MAGNESIUM - SERUM 1.8 mg/dL (1.8-2.4); PHOSPHOROUS 7.7 mg/dL (2.5-4.9); POTASSIUM - SERUM 5.5 mmol/L (3.5-5.1); PROTEIN - SERUM 5.7 g/dL (6.4-8.2)
[2016-11-30 06:29] LABS: CREATININE - SERUM 5.4 mg/dL (0.6-1.3)
--- NOTE | 2016-11-30 07:15 | NUR ---
RECEIVED PT FOR CARE. PT RESTING IN BED WITH EYES CLOSED. EASILY AROUSED FROM SLEEP. ASSESSMENT COMPLETED. VSS AT THIS TIME.
--- NOTE | 2016-11-30 09:15 | NUR ---
PT REPORTS THAT NAUSEA IS BETTER. RESTING COMFORTABLY.
[2016-11-30 10:23] LABS: AMYLASE - SERUM 214 U/L (25-115); LIPASE 946 U/L (73-393)
--- NOTE | 2016-11-30 11:00 | NUR ---
PT TO CT BY BED.
--- NOTE | 2016-11-30 11:45 | NUR ---
PT TOLERATING CLEAR LIQUIDS. HAD 240MLS OF BROTH. NO C/O NAUSEA AT THIS TIME.
[2016-11-30 13:16] LABS: ANA REFLEX - DBL STRANDED DNA 3 IU/mL (0-9)
--- NOTE | 2016-11-30 14:20 | NUR ---
NO NEEDS AT THIS TIME.
[2016-11-30 14:22] LABS: ANA REFLEX - ANTICHROMATIN ABS <0.2 AI (0.0-0.9); ANA REFLEX - CENTROMERE B ABS <0.2 AI (0.0-0.9); ANA REFLEX - DIRECT Positive (Negative); ANA REFLEX - JO-1 AB <0.2 AI (0.0-0.9); ANA REFLEX - RNP ANTIBODIES <0.2 AI (0.0-0.9); ANA REFLEX - SCL-70 0.2 AI (0.0-0.9); ANA REFLEX - SJOGRENS AB SSA 5.3 AI (0.0-0.9); ANA REFLEX - SJOGRENS AB SSB <0.2 AI (0.0-0.9); ANA REFLEX - SMITH AB <0.2 AI (0.0-0.9); SPE - A/G RATIO 1.4 (0.7-1.7); SPE - ALBUMIN 3.6 g/dL (2.9-4.4); SPE - ALPHA-1 GLOBULIN 0.3 g/dL (0.0-0.4); SPE - ALPHA-2 GLOBULIN 0.8 g/dL (0.4-1.0); SPE - BETA GLOBULIN 0.9 g/dL (0.7-1.3); SPE - GAMMA GLOBULIN 0.4 g/dL (0.4-1.8); SPE - M-SPIKE Not Observed g/dL (Not Observed); SPE - TOTAL PROTEIN 6.1 g/dL (6.0-8.5)
--- NOTE | 2016-11-30 16:30 | NUR ---
16FR SINGH CATHETER PLACED PER MD ORDERS. SOME RESISTENCE NOTED UPON INSERTION. ABLE TO PLACE AND DRAINED 350CC OF YELLOW URINE. SECURED TO LEG. PT TOLERATED WELL. PT REPORTS "I HAVE TO IN AND OUT CATH EVERY NIGHT. I AM SUPPOSED TO DO IT TWICE A DAY, BUT I ONLY DO IT AT NIGHT BECAUSE IT MAKES IT BLEED".
--- NOTE | 2016-11-30 17:10 | NUR ---
DR. MARTIN CALLED AND INFORMED OF PT'S HISTORY OF URINE RETENTION. ORDERS TO KEEP SINGH IN.
--- NOTE | 2016-11-30 19:10 | NUR ---
REC'D TO CARE, STRICKLER ATTENDANT PER FLOWSHEET. PT AWAKE AND ORIENTED TO SITUATION. VSS. IVFS INFUSING TO PIV X 2 NOTED. L PIV LEAKING AT SITE - D/C'D INTACT AND RESITED TO L AC X 1 STICK - SEE FLOWSHEET. LUNGS CTA. HEART RRR. SINGH CATH PATENT AND DRAINING CLEAR YELLOW URINE. PPP X 4 2+. PT WITH HICCUPS NOTED. DENIES PAIN OR NEEDS. ALARMS ON AND C/L IN REACH.
--- NOTE | 2016-11-30 19:25 | NUR ---
CM - NOTED IRREG, RATE OF 80-99, EKG OBTAINED - SHOWS AFIB WITH RVR.
--- NOTE | 2016-11-30 19:40 | NUR ---
DR. CLARK PAGED AND NOTIFIED OF NEW ONSET CAF. NO NEW ORDERS.
--- NOTE | 2016-11-30 20:45 | NUR ---
admin po meds per md order and prn norco for c/o chronic back pain. cm - caf. sbp 117. pt denies other needs at this time. alarms on and c/l in reach
--- NOTE | 2016-11-30 22:00 | NUR ---
PT RESTING WITH EYES CLOSED, NO SIGN OF DISTRESS.
--- NOTE | 2016-11-30 23:20 | NUR ---
REASSESSMENT PER FLOWSHEET, NO ACUTE CHANGES. PT RESTING QUIETLY, VSS. NO SIGN OF DISTRESS. ALARMS ON AND C/L IN REACH.
[2016-12-01] VITALS (25 sets, daily range): BP systolic 102–159; BP diastolic 43–90
--- NOTE | 2016-12-01 01:10 | NUR ---
RESTING WITH EYES CLOSED, VSS, NO SIGN OF DISTRESS.
--- NOTE | 2016-12-01 03:35 | NUR ---
REASSESSMENT PER FLOWSHEET, NO ACUTE CHANGES. PT C/O NAUSEA. ADMIN PRN PHENERGAN SUPP WY. REPOSITIONED UP IN BED WITH PILLOWS. CM -CAF. ALARMS ON AND C/L IN REACH.
--- NOTE | 2016-12-01 05:00 | NUR ---
COMPLETE BATH AND LINEN CHANGE DONE. PIV SITES BOTH LEAKING AT SITES, WILL D/C AND RESITE IV - SEE FLOWSHEET.. VSS. C/L IN REACH.
[2016-12-01 06:03] LABS: BASOPHILS 0.2 % (0-2); EOSINOPHILS 1.7 % (0-7); HEMATOCRIT 31.9 % (42.0-54.0); HEMOGLOBIN 10.5 g/dL (13.5-17.5); IMMATURE GRANULOCYTES 0.4 % (0-5); LYMPHOCYTES 11.6 % (15-50); MCH 28.3 pg (26.0-34.0); MCHC 32.9 g/dL (31.0-37.0); MEAN PLATELET VOLUME 11.8 fL (7.4-10.4); MONOCYTES 7.9 % (2-11); NEUTROPHILS 78.2 % (40-80); PLATELET COUNT 180 10x3/uL (130-400); RBC 3.71 10x6/uL (4.20-6.10); RDW 16.7 % (11.5-14.5); WBC 10.5 10x3/uL (4.8-10.8)
[2016-12-01 07:12] LABS: ALKALINE PHOSPHATASE 66 U/L (46-116); BILIRUBIN - TOTAL 0.91 mg/dL (0.2-1.3); CALCIUM 8.4 mg/dL (8.5-10.1); CHLORIDE - SERUM 95 mmol/L (98-107); CREATININE - SERUM 6.6 mg/dL (0.6-1.3); MAGNESIUM - SERUM 1.9 mg/dL (1.8-2.4); PHOSPHOROUS 7.7 mg/dL (2.5-4.9); POTASSIUM - SERUM 5.3 mmol/L (3.5-5.1); PROTEIN - SERUM 6.4 g/dL (6.4-8.2); SODIUM 132 mmol/L (136-145); UREA NITROGEN 114 mg/dL (7-18); eGFR NON AFRICAN AMERICAN 9 mL/min (90-120)
[2016-12-01 07:14] LABS: ALT (SGPT) 226 U/L (10-68); CALC OSMOLALITY 302 mosm/kg (275-300); CREATINE KINASE 293 UL (21-232); GLUCOSE 134 mg/dL (74-106)
[2016-12-01 07:15] LABS: CKMB 27.3 U/L (0.0-3.6)
--- NOTE | 2016-12-01 07:15 | NUR ---
PT ALERT AND ORIENTED, REPOSITIONED, DENIES PAIN, VSS, SEE SHIFT ASSESSMENT, CONTINUES WITH HICCUPS, PIV TO LUE, BICARB AT 50ML/HR, SINGH DRAINING YELLOW URINE, WILL CONTINUE TO MONITOR
--- NOTE | 2016-12-01 09:27 | NUR ---
PT TOOK AM MEDS WITHOUT DIFFICULTY, CONSUMED BREAKFAST, DENIES PAIN ANDALL NEEDS, CALL LIGHT WITHIN REACH WILL CONTINUE TO MONITOR
--- NOTE | 2016-12-01 11:35 | NUR ---
PRN PHENERGAN FOR NAUSEA, WAS EFFECTIVE, DENIES ALL NEEDS, REPOSITIONED
--- NOTE | 2016-12-01 12:15 | NUR ---
PT STATED "FEELING DIFFERENT BUT BAD" REYES IN COLOR, VSS WITH NO CHANGES FROM PREVIOUS, DENIES PAIN OF ALL KIND, FELT LIKE HAVING BM, WHEN ON BEDPAN STATED IT WAS JUST GAS, EKG SHOWING IN AFIB, CONTINUES WITH HICCUPS ON AND OFF ALL SHIFT LEADING TO SOB, AFTER ABGS DRAWN STATED HE IS "STARTING TO FEEL MORE NORMAL" WILL CONTINUE TO MONITOR
--- NOTE | 2016-12-01 13:00 | NUR ---
PT REPOSITIONED, DENIES ALL TYPES OF PAIN, VSS, REPOSITIONED, ATE SMALL PORTION OF LUNCH, WILL CONTINUE TO MONITOR
[2016-12-01 13:21] LABS: CKMB 22.5 U/L (0.0-3.6); CREATINE KINASE 212 UL (21-232); TROPONIN-I 39.456 ng/mL (0.000-0.060)
--- NOTE | 2016-12-01 14:27 | NUR ---
PT SPOKE WITH DR MARTIN AND PT DAUGHTER OWEN ALSO SPOKE WITH AND ALL IN AGREEMENT FOR TRIALYSIS CATHETER PLACEMENT FOR DIALYSIS, CONSENT OBTAINED FROM DAUGHTER DUE TO PT CONFUSION EARLIER TODAY,
--- NOTE | 2016-12-01 14:55 | NUR ---
PRN NORCO ADMINISTERED FOR CHEST PAIN, PT STATED IT WAS A THROBBING PAIN AND HE FELT SOB, THOUGH HE ALSO CONTINUES TO HAVE HICCUPS, NO CHANGES IN RATE OR RHYTHM (FROM EKG), SPO2 96-99%, DR MARTIN IN UNIT AND AWARE, WILL CONTINUE TO MONITOR
--- NOTE | 2016-12-01 17:31 | NUR ---
RIGHT TRIALYSIS CATHETER INSERTED BY DR RUSSO PT TOLERATED WELL, CXR COMPLETE, FAMILY AT BEDSIDE
--- NOTE | 2016-12-01 18:45 | NUR ---
CXR SHOWS TRIALYSIS CATHETER IN PLACE, DAUGHTER WAS HERE FOR 4-6 PM VISITATION AND AWARE THAT TRIALYSIS HAS BEEN PLACED AND DIALYSIS WILL START, DIALYSIS NURSE IN ROOM. PT DENIES PAIN, VSS, WILL CONTINUE TO MONITOR
--- NOTE | 2016-12-01 19:20 | NUR ---
REC'D TO CARE, DIALYSIS NURSE AT , HD IN PROCESS VIA R TRIALYSIS CATH. PT AWAKE AND ORIENTED TO SITUATION. VSS. CM - CAF. PT DENIES PAIN OR SOB. SINGH CATH PATENT AND DRAINING CLEAR, YELLOW URINE. ALARMS ON AND C/L IN REACH.
--- NOTE | 2016-12-01 20:30 | NUR ---
NO VISITORS AT THIS TIME. VSS. NO SIGN OF DISTRESS.
--- NOTE | 2016-12-01 21:10 | NUR ---
HD COMPLETE. 500ML REMOVED WITHOUT COMPLICATIONS.
--- NOTE | 2016-12-01 23:00 | NUR ---
REASSESSMENT PER FLOWSHEET. PT C/0 BACK PAIN AND INDEGESTION. ADMIN PRN NORCO AND PHENERGAN. REPOSITIONED UP IN BED TO L SIDE WITH PILLOWS. BELCHING NOTED. WILL CONT CLOSE MONITORING.
--- NOTE | 2016-12-01 23:44 | NUR ---
DR. MAYERS PAGED AND NOTIFIED OF UNRESOLVED PAIN - NEW ORDER REC'D.
[2016-12-02] VITALS (18 sets, daily range): BP systolic 96–139; BP diastolic 49–82
--- NOTE | 2016-12-02 03:36 | NUR ---
REASSESSMENT PER FLOWSHEET, NO ACUTE CHANGES. STILL EPISODES OF MOANING OCC, PT WITH SOME CONFUSION, REORIENTED BY NURSE. WILL ADMIN PRN MED NEEDED. BACK TO REST AT THIS TIME. ALARMS ON AND C/L IN REACH.
--- NOTE | 2016-12-02 04:20 | NUR ---
COMPLETE BATH AND LINEN CHANGE DONE. HAIR WASHED. ALARMS ON AND C/L IN REACH.
[2016-12-02 06:02] LABS: BASOPHILS 0.1 % (0-2); EOSINOPHILS 1.6 % (0-7); HEMATOCRIT 29.1 % (42.0-54.0); HEMOGLOBIN 9.8 g/dL (13.5-17.5); IMMATURE GRANULOCYTES 0.2 % (0-5); LYMPHOCYTES 7.7 % (15-50); MCH 28.8 pg (26.0-34.0); MCHC 33.7 g/dL (31.0-37.0); MCV 85.6 fL (80.0-100.0); MONOCYTES 7.8 % (2-11); NEUTROPHILS 82.6 % (40-80); PLATELET COUNT 155 10x3/uL (130-400); RDW 16.8 % (11.5-14.5); WBC 12.5 10x3/uL (4.8-10.8)
[2016-12-02 06:32] LABS: ALBUMIN 2.6 g/dL (3.4-5.0); BILIRUBIN - TOTAL 0.79 mg/dL (0.2-1.3); CALCIUM 8.4 mg/dL (8.5-10.1); CARBON DIOXIDE 23.9 mmol/L (21.0-32.0); CREATININE - SERUM 5.6 mg/dL (0.6-1.3); MAGNESIUM - SERUM 1.8 mg/dL (1.8-2.4); PHOSPHOROUS 6.9 mg/dL (2.5-4.9); PROTEIN - SERUM 5.9 g/dL (6.4-8.2)
[2016-12-02 06:41] LABS: ANION GAP 18.2 mmol/L (8-16); POTASSIUM - SERUM 4.1 mmol/L (3.5-5.1)
--- NOTE | 2016-12-02 10:58 | NUR ---
8067 DR. MCKEON ON FLOOR TO SEE PATIENT. DISCUSSED CONDITION, OK TO CONSULT PULMONOLOGY FOR APNEA. PAGED DR. CASTILLO. WILL GET ABG AFTER DIALYSIS COMPLETE. 0335 JESS AT BEDSIDE TO START DIALYSIS. WILL MONITOR PATIENT CLOSELY FOR COMPLICATIONS. AM PAPO HELD FOR FSBS 69. WILL GIVE REMAINING AM MEDS AFTER DIALYSIS COMPLETE.
--- NOTE | 2016-12-02 10:58 | NUR ---
Nutrition Follow Up: Chart reviewed. Pt is eating 25% meal avg on clear liquid diet. Noted pt c/o nausea. No BM since admit. Wt gain noted - likely r/t fluid. Labs reviewed. Meds noted including Lasix. Rec advancing CAM as soon as medically feasible. RD following.
--- NOTE | 2016-12-02 11:22 | NUR ---
1100 REASSESSMENT DOCUMENTED PER FLOWSHEET, DIALYSIS CONTINUES.
--- NOTE | 2016-12-02 11:55 | NUR ---
Mr. Acosta had bedside hemodialysis today via his right IJ Trialysis from 0929 until 1130 am. Average blood flow was 350 mls/minute. Net fluid removed was 1000 mls. Pt. was very unstable during treatment. He had long periods of apnea requiring constant urging to breathe. His heart rate would go from 100 to 60 very rapidly at times and had quite a few pvc's. Post vital signs were: B/P: 103/73, HR: 109, Temp: 98.3, Resps: 13.
[2016-12-02 14:21] LABS: UPE RAND - ALBUMIN 61.9 % (()); UPE RAND - ALPHA 1 GLOBULIN 3.3 % (()); UPE RAND - BETA GLOBULIN 14.7 % (()); UPE RAND - GAMMA GLOBULIN 9.1 % (())
--- NOTE | 2016-12-02 14:21 | NUR ---
CM met with patient & daughter, Viv, at bedside. They are requesting hospice evaluation. Discussed hospice options (home, facility, & inpatient). Answered questions. They request for patient to be evaluated for [facility]IP hospice services here at [facility]. Spoke with Dr. Salcido via telephone - order rec'd for GIP Hospice evaluation. Referral faxed and called to [place] with [facility]. They will evaluate patient this afternoon. CM will follow.
--- NOTE | 2016-12-02 16:53 | NUR ---
PATIENT C/O NAUSEA. ZOFRAN GIVEN PER APR. WILL MONITOR FOR EFFECTIVENESS.
--- NOTE | 2016-12-02 16:54 | NUR ---
1500 REASSESSMENT DOCUMENTED PER FLOWSHEET. HOSPICE NURSE AT BEDSIDE WITH STEPDAUGHTER COMPLETING EVALUATION.
--- NOTE | 2017-03-08 08:09 | DS ---
PATIENT:COLUMBA MURRY :39 MEDICAL RECORD: [id number] DISCHARGE SUMMARY ADMISSION DATE: 11/27/16 DISCHARGE DATE: 12/02/16 CONSULTS: Nephrology, cardiology, nephrology. ADMISSION DIAGNOSES: Gyotk-tj-nofjowf renal failure, cardiovascular disease, syncope, chest pain, elevated troponin, anemia acute on chronic, diabetes, gout, hypertension. DISCHARGE DIAGNOSES: Fjyjl-if-hzntbcu renal failure, cardiovascular disease, anemia acute on chronic, diabetes, gout, hypertension. HOSPITAL COURSE: The patient was admitted to the Emergency Room, taken to the skill labor, had stents placed. For the worsening renal function, nephrology consulted. The patient was set up for dialysis. Underwent dialysis. Had apneic episodes. Did not tolerate dialysis well. Continued to deteriorate. Family agreed to inpatient hospice. The patient was discharged to hospice. Agree with assessment by all consults. See chart for further details of this complex case. TRANSINT:[id number] Voice Confirmation ID: [id number] DOCUMENT ID: [id number] PK OLIVIER DO at 0809 CC: [id number] DICTATION DATE: 03/05/17 1450 COLLECTION COORDINATOR: 03/06/17 0936 DIS IN 12/02/16 [facility] [address] [place] [address]
== END 2016-12-02 17:44 | disposition hospice, inpatient (51) | DRG 248 ==
LOC: D.ER 11:42 → D.CVICU 16:56 → D.M2 16:56 → D.ICU 16:56 → D.CVICU 11-29 19:54
PROVIDERS: Family Medicine; Internal Medicine Interventional Cardiology; Internal Medicine Nephrology; ADMIT Family Medicine
PROC: B2111ZZ Fluoroscopy of Multiple Coronary Arteries using Low Osmolar Contrast (ICD-10-PCS; 2016-11-28)
PROC: 02703EZ Dilation of Coronary Artery, One Artery with Two Intraluminal Devices, Percutaneous Approach (ICD-10-PCS; principal; 2016-11-28 10:30)
PROC: 4A023N7 Measurement of Cardiac Sampling and Pressure, Left Heart, Percutaneous Approach (ICD-10-PCS; 2016-11-28 10:30)
PROC: 0T9B70Z Drainage of Bladder with Drainage Device, Via Natural or Artificial Opening (ICD-10-PCS; 2016-11-30)
PROC: 5A1D70Z Performance of Urinary Filtration, Intermittent, Less than 6 Hours Per Day (ICD-10-PCS; 2016-12-01)
PROC: 02HV33Z Insertion of Infusion Device into Superior Vena Cava, Percutaneous Approach (ICD-10-PCS; 2016-12-01)
PROC: B548ZZA Ultrasonography of Superior Vena Cava, Guidance (ICD-10-PCS; 2016-12-01)
DX: I21.4 Non-ST elevation (NSTEMI) myocardial infarction (principal); K85.90 Acute pancreatitis without necrosis or infection, unspecified; N17.9 Acute kidney failure, unspecified; E87.2 Acidosis; I44.2 Atrioventricular block, complete; I25.110 Atherosclerotic heart disease of native coronary artery with unstable angina pectoris; E11.22 Type 2 diabetes mellitus with diabetic chronic kidney disease; I12.9 Hypertensive chronic kidney disease with stage 1 through stage 4 chronic kidney disease, or unspecified chronic kidney disease; Z79.4 Long term (current) use of insulin; D63.1 Anemia in chronic kidney disease; M10.9 Gout, unspecified; E87.5 Hyperkalemia; E83.39 Other disorders of phosphorus metabolism; Z66 Do not resuscitate; N18.3 Chronic kidney disease, stage 3 (moderate); E11.649 Type 2 diabetes mellitus with hypoglycemia without coma; R74.8 Abnormal levels of other serum enzymes

== ENCOUNTER 2016-12-02 17:16 | Inpatient (IN) | payer OTHER ==
[~2016-12-02 17:16] MED LIST changes: +BACTRIM DS TABL1 TAB PO; +NORVASC2.5 MG PO
[2016-12-02 18:12] VITALS: BP 124/79; BMI 27.4
--- NOTE | 2016-12-02 18:26 | NUR ---
PATIENT ADMITTED FOR HOSPICE CARE. LYING IN BED, 2L NC IN PLACE, ALL VITALS WNL. CONNECTED TO MRI SPECIALIST. ALL SKIN INTACT, SCATTERED BRUISING AND SCABS. RIJ TRIALYSIS CATH IN PLACE, SALINE LOCKED. SINGH DRAINING CONCENTRATED YELLOW URINE. PATIENT DENIES NEEDS AT THIS TIME. NO FAMILY AT BEDSIDE.
--- NOTE | 2016-12-02 18:43 | NUR ---
SCOPOLAMINE PATCH PLACED BEHIND LEFT EAR
[2016-12-02 19:00] VITALS: BP 130/86
--- NOTE | 2016-12-02 19:00 | NUR ---
REPORT RECEIVED AND ASSESSMENT COMPLETED. SEE FLOWSHEET FOR FULL DETAILS. VSS. PT NOW HAS HOSPICE STATUS. PT DENIES ANY DISCOMFORT AT THIS TIME. WILL MONITOR THROUGHOUT SHIFT FOR NEED OF COMFORT CARE. SPOKE WITH PT FAMILY AND DISCUSSED PT CONDITION.
--- NOTE | 2016-12-02 21:00 | NUR ---
PT RESTING COMFORTABLY IN ROOM. STILL DENIES DISCOMFORT. WILL CONTINUE TO MONITOR
[2016-12-02 23:00] VITALS: BP 124/76
--- NOTE | 2016-12-02 23:00 | NUR ---
NO CHANGES IN STATUS AT THIS TIME. WILL CONTINUE TO MONITOR
--- NOTE | 2016-12-03 01:00 | NUR ---
PT HAS HAD SOME PAIN RECENTLY. HOT BRAIDER SET UP PER ORDERS. NO OTHER CHANGES AT THIS TIME. WILL CONTINUE TO MONITOR
[2016-12-03 03:00] VITALS: BP 124/72
--- NOTE | 2016-12-03 03:00 | NUR ---
SINCE MANAGER INVENTORY MANAGEMENT SET UP, NO C/O PAIN. WILL CONTINUE TO MONITOR
--- NOTE | 2016-12-03 05:44 | NUR ---
REPORT CALLED TO MED 2 AND PT TO BE TRANSFERRED TO 2140 VIA BED.
--- NOTE | 2016-12-03 06:50 | NUR ---
AM ROUNDING DONE WITH PATIENT NO COMPLAINTS FROM PATIENT. PATIENT IS DNR CODE STATUS AND ON HOSPICE. NO FAMILY PRESENT IN ROOM. ON 2L PER NC. SINGH CATH PATENT WITH CLEAR YELLOW URINE. RIGHT IJ WITH NURSE PORT SEEN WITH NS INFUSING AT 10 CC/HR ALONG WITH CONT. SOLID WASTE MANAGEMENT ENGINEER OF DILAUDID. BILATERAL BRUISE SEEN TO UPPER ARM. WITH NIGHT NURSE, PATIENT ROLLED TO SIDE TO ASSESS BOTTOM, NO SKIN BREAKDOWN SEEN OR REDNESS. WILL MONITOR.
[2016-12-03 08:22] VITALS: BP 135/79
[2016-12-03 09:40] VITALS: BP 139/71
--- NOTE | 2016-12-03 09:40 | NUR ---
PATIENT IS STARTING TO HAVE SOME APNEA. OWEN (STEP DAUGHTER IS CALLED) AND NOTIFIED OF THIS.
--- NOTE | 2016-12-03 10:31 | NUR ---
1020-GRANDDAUGHTER KENNEY TO CALL AND CHECK ON PATIENT. I INFORMED HER THAT HE IS HAVING PERIODS OF APNEA.
--- NOTE | 2016-12-03 12:23 | NUR ---
Nutrition Note: Pt admitted for hospice care. RD available if needed further.
--- NOTE | 2016-12-03 12:32 | NUR ---
RESP ARE 9, SOME APNEA STILL FAMILY MEMBER (MALE) IN ROOM. WILL CONTINUE TO MONITOR.
[2016-12-03 12:39] VITALS: BP 134/80
--- NOTE | 2016-12-03 13:33 | NUR ---
RESP ARE NOW 6 PER MIN WITH 30 SEC APENEA.
--- NOTE | 2016-12-03 15:11 | NUR ---
1510-POLYSOMNOGRAPHY TECH DILAUDID CHANGED TO 0.2 MG CONT. ORDERED. FAMILY IS AT BEDSIDE.
--- NOTE | 2016-12-03 16:13 | NUR ---
RESP ARE 9, PATIENT SEEMS TO BE RESTING BETTER. WILL LEAVE AUTOMOTIVE MECHANIC DOSE AT 0.2 MG CONT. FAMILY AT BEDSIDE AND AGREES WITH THIS AT THIS TIME.
--- NOTE | 2016-12-03 18:34 | NUR ---
PER HOSPICE, TO INCREASE HOME HEALTH MANAGER DILAUDID TO 0.4 MG CONT. CALLED JOSELO IN PHARMACY AND WILL ADJUST PAST ORDER PLACEMENT.
--- NOTE | 2016-12-03 19:45 | NUR ---
PER FAMILY REQUEST AND HOSPICE NURSE, ATIVAN 1 MG GIVEN SLOW IVP PAST MIXING IT WITH 5 CC NS.
--- NOTE | 2016-12-03 23:45 | NUR ---
REPORT RECIEVED, RESUMED CARE OF PT. SLEEPING ATT, NO S&S OF ACUTE DISTRESS NOTED. PT IS A DNR AND ON HOSPICE, WILL MONITOR CLOSELY. BED LOW AND LOCKED, CALL LIGHT IN REACH. WILL CPOC.
--- NOTE | 2016-12-04 00:44 | NUR ---
CHECKED IN ON PT, NO S&S ACUTE DISTRESS NOTED, RR EVEN AND UNLABORED BUT NOTABLE INTERVAL OF APNEA PRESENT, THIS IS NORMAL FOR THIS PATIENT ACORDING TO REPORTS. BED IS LOW AND LOCKED, CALL LIGHT IN REACH. WILL CPOC.
--- NOTE | 2016-12-04 07:23 | NUR ---
NEW SYRINGE OF DILAUDID PLACED IN SQUAD BOSS AT THIS TIME. PT LETHARGIC, APNEIC BREATHING NOTED. SINGH DRAINING YELLOW URINE TO GRAVITY. RT IJ INFUSING NS AT 10CC/HR. AND DILAUDID SQUAD BOSS 0.4MG CONT. BED LOW AND WHEELS LOCKED, BEDSIDE RAILS X2, NO FAMILY PRESENT, CALL LIGHT IN REACH, NAD NOTED, WILL CONTINUE TO MONITOR.
[2016-12-04 08:39] VITALS: BP 94/59
--- NOTE | 2016-12-04 11:13 | NUR ---
[facility] NURSE AT BEDSIDE TO ASSESS PT. PT STILL WITH APNETIC BREATHING. NAD NOTED, WILL CONTINUE TO MONITOR.
--- NOTE | 2016-12-04 13:14 | NUR ---
ADMINSITERED A BOLUS OF 1MG AT THIS TIME, PER FAMILY REQUEST. PT BREATHING IS IRREGULAR HAVING LONGER PERIODS OF APNEA. FAMILY AT BEDSIDE, NAD NOTED, WILL CONTINUE TO MONITOR.
--- NOTE | 2016-12-04 17:07 | NUR ---
PT FOUND IN ROOM WITH NO RR NOTED, NO PULSE, NO HEART BEAT, NO LUNG SOUNDS. NOTIFIED [facility]. TARAS WAS PAGED.
--- NOTE | 2016-12-04 17:09 | NUR ---
CALLED PT CONTACT, OWEN. NOTIFIED HER OF PT . SHE IS ON HER WAY TO COLLECT PT BELONGINGS AND SAY GOODBYE TO PT
--- NOTE | 2016-12-04 17:22 | NUR ---
[facility]OS[facility]ICE NURSE ON HER WAY TO HOSPITAL.
--- NOTE | 2016-12-04 17:47 | NUR ---
DR. DUMONT HERE TO PRONOUNCED PT. TIMED PRONOUCED WAS 1744. STILL WAITING ON HOSPICE NURSE AND FAMILY TO ARRIVE.
--- NOTE | 2016-12-04 17:53 | NUR ---
ABEL CALLED, SPOKE WITH JUSTIN PT DOES NOT MEET CRITERIA, AGE RULE OUT.
--- NOTE | 2016-12-04 18:16 | NUR ---
FAMILY AT BEDSIDE. PT HAS NO BELONGING HERE, FAMILY HAS ALREADY TAKEN IT HOME. FAMILY DENY ANY NEEDS AT THIS TIME. WANT TO STAY A LITTLE LONGER AT PT'S SIDE.
--- NOTE | 2016-12-04 20:06 | NUR ---
PT BODY RELEASED TO [facility],
== END 2016-12-04 20:07 | DRG 951 ==
LOC: D.CVICU 17:16 → D.M2 17:16 → D.ICU 17:16 → D.CVICU 17:46 → D.M2 12-03 06:06
PROVIDERS: ADMIT Legal Medicine
DX: Z51.5 Encounter for palliative care (principal)